=== PATIENT | male | born 2000 | race African-American/Black ===

== ENCOUNTER 2024-01-25 19:28 | Emergency (ER) | payer MEDICAID, OTHER ==
[~2024-01-25] VITALS: Ht 177.8 cm; Wt 75.0 kg
[2024-01-25 19:57] VITALS: O2SAT 98
[2024-01-25 20:21] LABS: BASOPHILS % 0.8 % (0.0-2.0); EOSINOPHILS % 0.1 % (0.0-5.0); HEMATOCRIT. 41.3 % (42.0-52.0); LYMPHOCYTES % 29.8 % (20.0-50.0); MEAN CORPUSCULAR HEMOGLOBIN 27.4 pg (28.0-32.0); MEAN CORPUSCULAR HGB CONC 33.8 g/dL (31.0-37.0); MEAN CORPUSCULAR VOLUME 81.2 fL (80.0-94.0); MEAN PLATELET VOLUME 7.4 fl (7.4-10.4); MONOCYTES % 8.2 % (2.0-8.0); NEUTROPHILS % 61.1 % (40.0-76.0); PLATELET 311 x1000/uL (130-400); RED BLOOD CELL COUNT 5.09 mill/uL (4.7-6.1); WHITE BLOOD COUNT 6.7 x1000/uL (4.5-11.0)
[2024-01-25 20:25] LABS: DIFFERENTIAL COMMENT 1
[2024-01-25 20:27] LABS: CARBON DIOXIDE 21 mEq/L (21-32); CHLORIDE 104 mEq/L (98-107); POTASSIUM 3.2 mEq/L (3.5-5.1); SODIUM 137 mEq/L (136-145)
[2024-01-25 20:28] LABS: CALCIUM 9.9 mg/dL (8.7-10.4)
[2024-01-25 20:32] LABS: CREATININE 1.1 mg/dL (0.6-1.3)
[2024-01-25 20:33] LABS: GLUCOSE 90 mg/dL (70-105); UREA NITROGEN BLOOD 8 mg/dL (9-23)
[2024-01-25 20:34] LABS: ALANINE AMINOTRANSFERASE 14 IU/L (10-49)
[2024-01-25 20:35] LABS: ALBUMIN 5.2 g/dL (3.2-4.8); ASPARTATE AMINOTRANSFERASE 23 IU/L (<34); BILIRUBIN DIRECT 0.2 mg/dL (<=3.0); BILIRUBIN TOTAL 0.6 mg/dL (0.1-1.0); PROTEIN TOTAL 7.7 g/dL (6.0-8.3)
[2024-01-25 21:24] LABS: HCG SCREEN NEGATIVE
[2024-01-25] MEDS ORDERED: DICYCLOMINE HCL 10MG CAPSULE PO ONE (23:45)
[2024-01-25] MEDS ORDERED: POTASSIUM CHLORIDE 20MEQ/PACKET PO ONE (23:45)
[2024-01-26 02:11] LABS: CLARITY URINE CLEAR (CLEAR); COLOR URINE DARK YELLOW (YELLOW); GLUCOSE URINE NEGATIVE (NEGATIVE); KETONES URINE 3+ (NEGATIVE); LEUKOCYTE ESTERASE URINE 2+ (NEGATIVE); NITRITE URINE POSITIVE (NEGATIVE); OCCULT BLOOD URINE NEGATIVE (NEGATIVE); PROTEIN URINE 1+ (NEGATIVE); SPECIFIC GRAVITY URINE 1.043 (1.005-1.030); UROBILINOGEN URINE 0.2 E.U./dL (0.2-1.0)
[2024-01-26] MEDS: POTASSIUM CHLORIDE 20MEQ/PACKET PO NR (02:15)
[2024-01-26] MEDS: DICYCLOMINE HCL 10MG CAPSULE PO NR (02:15)
[2024-01-26] MEDS: SODIUM CHLORIDE 0.9% 1,000 ML IV ONE (02:15)
[2024-01-26] MEDS ORDERED: ONDA4TAB11 PO (02:17)
[2024-01-26] MEDS ORDERED: SULF1TAB48 MT (02:36)
[2024-01-26 03:50] VITALS: BP 127/47; PULSE 66; RESP 14; TEMP 97.6
[2024-01-26 04:25] LABS: BACTERIA URINE 1+; CALCIUM OXALATE CRYSTALS URINE 1+ /lpf; MUCUS URINE 2+ /lpf (NONE/TRACE); RBC URINE 0-2 /hpf (0-2); SQUAMOUS EPITHELIAL CELL URINE 1+ /lpf (RARE/1+)
== END 2024-01-26 03:52 | disposition home or self-care (01) ==
LOC: ER 19:28
DX: R10.9 Unspecified abdominal pain (principal); R11.2 Nausea with vomiting, unspecified; R19.7 Diarrhea, unspecified; E87.6 Hypokalemia; N39.0 Urinary tract infection, site not specified
CPT/HCPCS: 99283; 80076; 80048; 84703; 83690; 85025; 36415; 96360; 81003; J7030